=== PATIENT | female | born 1970 | race Hispanic/Latino ===

== ENCOUNTER 2017-06-05 11:07 | Day surgery (SDC) | payer MEDICAID ==
[~2017-06-05] VITALS: Ht 154.9 cm; Wt 64.9 kg
[~2017-06-05 11:07] MED LIST: ALLEGRA180 MG PO; IRON325 M1 PO; LEVOTHYROXIN50 MCG PO; OMEPRAZOLE10 MG PO; ZYRTEC10 MG PO
[2017-06-05 13:11] VITALS: BP 125/72
== END 2017-06-05 12:23 | disposition home or self-care (01) | DRG 382 ==
LOC: ENDO 11:07 → ORM 18:00 → ENDO 18:00 → ORM 18:30
PROVIDERS: ATTEND Internal Medicine Gastroenterology
PROC: 0DB58ZX Excision of Esophagus, Via Natural or Artificial Opening Endoscopic, Diagnostic (ICD-10-PCS; principal; 2017-06-05)
DX: K22.70 Barrett's esophagus without dysplasia (principal); K21.9 Gastro-esophageal reflux disease without esophagitis; K29.70 Gastritis, unspecified, without bleeding; Q40.8 Other specified congenital malformations of upper alimentary tract; K44.9 Diaphragmatic hernia without obstruction or gangrene; R10.13 Epigastric pain; R14.0 Abdominal distension (gaseous)